=== PATIENT | male | born 1965 | race Caucasian/White ===

== ENCOUNTER 2022-04-15 12:03 | Emergency (ER) | payer MEDICAID, SELFPAY ==
[2022-04-15 12:10] VITALS: BP 189/104; PULSE 64; RESP 20; TEMP 36.7; O2SAT 99; BMI 18.6
--- NOTE | 2022-04-15 12:16 | CT_ITS ---
PROCEDURE INFORMATION: Exam: CT Lumbar Spine Without Contrast Exam date and time: 04/15/2022 12:42 PM Age: 56 years old Clinical indication: Low back pain; Additional info: Lle radicular pain-- no injury just bent over and pain TECHNIQUE: Imaging protocol: Computed tomography of the lumbar spine without contrast. Radiation optimization: All CT scans at this facility use at least one of these dose optimization techniques: automated exposure control; mA and/or kV adjustment per patient size (includes targeted exams where dose is matched to clinical indication); or iterative reconstruction. COMPARISON: No relevant prior studies available. FINDINGS: Bones/joints: No acute fracture. Normal alignment. Disc heights are maintained. Small indistinct soft tissue density within the entry zone of the left neural foramina at L5-S1 concerning for left lateral/intraforaminal disc herniation which would be better assessed on MRI exam. Soft tissues: Abdominal aorta is diffusely calcified. No paraspinal masses or soft tissue swelling.. IMPRESSION: Questionable left lateral disc herniation L5-S1 extending into the left neural foramina which would be better evaluated on MRI exam lumbar spine.
--- NOTE | 2022-04-15 12:22 | [facility].EDGENADL ---
Discharge Plan Disposition Patient Disposition: Home, Self-Care Condition: Good Prescriptions Prescriptions: New methocarbamol 500 mg tablet 500 mg PO TID PRN (Reason: muscle spasm) Qty: 15 0RF No Action metoprolol tartrate 100 mg tablet 100 mg PO BID Label Comments: TAKE 1 TABLET BY MOUTH TWICE A DAY Activity Restrictions/Add. Instructions Additional Instructions/Restrictions: At this time was felt you are safe to be discharged home. If new or worsening problems please do not hesitate to return for continued evaluation. Please follow-up with your family doctor within 5 days. Clinical Impressions Clinical Impression: Lumbar radiculopathy, Acute herniated disc Discharge ED Provider: Chiki Schaffer General Adult HPI General Chief complaint: Back Pain/Injury Stated complaint: no accident, Back and left hip pain Time Seen by Provider: 04/15/22 12:22 History of Present Illness HPI narrative: Patient is a 56-year-old male with no pertinent past medical history who presents emergency department for evaluation of back pain. Onset was acute, occurring earlier this week while bending over shooting pain down his left leg. Patient has intermittent numbness localized to his fingertips, no weakness, no dysphagia, no dysarthria. Denies urinary or bowel incontinence. Patient is able to bear weight with severe pain. Pain is worse with movement. No other acute complaints at this time. Related Data Home Medications Medication Instructions Recorded Confirmed metoprolol tartrate 100 mg tablet 100 mg PO BID Hypertension 04/15/22 04/15/22 Previous Rx's Medication Instructions Recorded methocarbamol 500 mg tablet 500 mg PO TID PRN muscle spasm #15 04/15/22 tabs Allergies Allergy/AdvReac Type Severity Reaction Status Date / Time erythromycin base Allergy Verified 04/15/22 12:24 Penicillins Allergy Verified 04/15/22 12:24 Sulfa (Sulfonamide Allergy Verified 04/15/22 12:24 Antibiotics) [facility] Medical History (Updated 04/15/22 @ 13:57 by Chiki Schaffer MD) COPD (chronic obstructive pulmonary disease) Hernia Surgical History (Updated 04/15/22 @ 12:25 by Noy Gaviria RN) H/O knee surgery Social History Smoking Status: Never smoker alcohol intake: never current occupational status: employed Travel in the last 8 weeks: None ROS Obtained: Yes Systems reviewed as appropriate & no additional complaints except as documented Physical Exam General General appearance: alert and in no apparent distress Head Head exam: atraumatic and normocephalic Eye Eye exam: Present PERRL and EOMI ENT ENT exam: Present mucous membranes moist Neck Neck exam: Present normal inspection Chest Chest inspection: Present normal inspection and symmetric chest wall rise Respiratory Respiratory exam: Present normal lung sounds bilaterally; Absent respiratory distress Cardiovascular Cardiovascular exam: Present regular rate and normal rhythm Abdominal Exam Abdominal exam: Present soft; Absent tenderness Extremities Exam Extremities exam: Present normal inspection and other (Sensation intact to light touch bilateral upper extremities, 5 out of 5 strength bilateral upper extremities, 5 out of 5 strength bilateral lower extremities, sensation intact to light touch bilateral lower extremities) Back Exam Back exam: Present tenderness (Left paraspinal) Neurological Exam Neurological exam: Present alert and oriented X3 Psychiatric Psychiatric exam: Present normal affect Skin Skin exam: Present warm and dry Medical Decision Making Mehdi Inquiry Pt receiving controlled substance: No Vital Signs: 04/15/22 12:10 04/15/22 12:55 04/15/22 13:00 Temperature 98.0 F Temperature Source Oral Pulse Rate 53 L 51 L Pulse Rate [Right Radial] 64 Respiratory Rate 20 Blood Pressure 161/76 H 172/87 H Blood Pressure [Right Arm] 189/104 H Blood Pressure Mean 109 119 Bloo
[2022-04-15 12:41] LABS: Basophils # 0.1 K/mm3 (0-0.2); Basophils % 1.1 % (0.1-2.0); Eosinophils # 0.2 K/mm3 (0.0-0.4); Eosinophils % 3.2 % (0.1-12.0); Hemoglobin 14.5 g/dL (14.1-18.0); Lymphocytes # 1.6 K/mm3 (0.7-4.5); Lymphocytes % 28.7 % (10-50); Mean Corpuscular HGB Conc 32.3 g/dL (31.8-35.4); Mean Corpuscular Hemoglobin 30.6 pg (27.0-31.2); Mean Corpuscular Volume 94.5 fl (80-94); Mean Platelet Volume 7.3 fl (7.4-10.4); Monocytes # 0.3 K/mm3 (0.1-1.0); Monocytes % 5.1 % (1.7-9.3); Neutrophils # 3.5 K/mm3 (1.8-7.8); Platelet Count 365 K/mm3 (142-424); Red Blood Count 4.76 M/mm3 (4.60-6.20); Red Cell Distribution Width 13.6 % (11.5-17.5); White Blood Count 5.7 K/mm3 (4.8-10.8)
--- NOTE | 2022-04-15 12:41 | PC.NURSE ---
PT TRANSPORTED TO RADIOLOGY.
[2022-04-15 12:49] LABS: Alanine Aminotransferase 12 U/L (12-78); Albumin Level 4.4 g/dl (3.5-5.0); Albumin/Globulin Ratio 1.6 (1.1-1.8); Alkaline Phosphatase 61 U/L (38-126); Anion Gap 14.4 mEq/L (5-15); Aspartate Amino Transferase 20 U/L (17-59); Bilirubin,Total 0.5 mg/dl (0.2-1.3); Blood Urea Nitrogen 14 mg/dl (9-20); Calcium 9.4 mg/dl (8.4-10.2); Carbon Dioxide 31 mmol/L (22.0-30.0); Chloride 102 mmol/L (98-107); Creatinine Clearance Estimated 71 mL/min (50-200); Estimated Glomerular Filt Rate 77 ml/min (>60); GFR (African American) 94 ML/MIN (>60); Globulin 2.7 g/dL (1.3-3.2); Glucose 130 mg/dl (74-100); Potassium 4.4 mmoL/L (3.5-5.1); Sodium 143 mmol/L (136-145); Total Protein,Serum 7.1 g/dl (6.3-8.2)
[2022-04-15 12:55] VITALS: BP 161/76; PULSE 53; O2SAT 99
[2022-04-15 13:00] VITALS: BP 172/87; PULSE 51
[2022-04-15 13:30] VITALS: BP 181/91; PULSE 55; RESP 20; O2SAT 100
--- NOTE | 2022-04-15 13:33 | PC.NURSE ---
warm blanket provided for pt
[2022-04-15 14:37] VITALS: BP 181/78; PULSE 53; O2SAT 100
[2022-04-15 14:42] VITALS: BP 181/78; PULSE 53; RESP 18; TEMP 36.7; O2SAT 100
== END 2022-04-15 14:43 | disposition home or self-care (01) ==
PROVIDERS: Emergency Provider Emergency Medicine
DX: M51.16 Intervertebral disc disorders with radiculopathy, lumbar region (principal)
CPT/HCPCS: 72131; 80053; 85025; 96374; 96375; 99284; J0131